=== PATIENT | female | born 1990 | race Hispanic/Latino ===

== ENCOUNTER 2019-11-16 14:18 | Day surgery (SDC) | payer OTHER ==
[2019-11-16 15:00] VITALS: BMI 29.4
[2019-11-16] MEDS ORDERED: hydrALAZINE 20 MG/ML VIAL SLOW IVP PRN (15:30)
--- NOTE | 2019-11-16 16:13 | PRG ---
DATE OF SERVICE: PRIMARY OB: Dr. Cameron Bañuelos. CHIEF COMPLAINT: Abdominal pains and back pains. HISTORY OF PRESENT ILLNESS: The patient is a 28-year-old G2, P1 female with an intrauterine at 36 weeks and 3 days, presenting to Labor and Delivery with 1 to 2 day onset of worsening pelvic and abdominal pain. She reports the pain as shooting in her legs and thighs from her back and from her abdomen. She reports that she sometimes has tightening in her belly. The pain is much worse with activity and movement such as getting out of bed, walking and lifting. She does have a 3-year-old at home that she keeps her very active. The patient denies any fever, cough, headache, chest pain, shortness of breath. She does have some nausea. Denies vomiting. Denies diarrhea or constipation. Denies any new rashes, hip problems, knee problems, muscle weakness. Denies vaginal bleeding, leakage of fluid, urinary urgency or frequency. PAST MEDICAL HISTORY: Negative. PAST SURGICAL HISTORY: Negative. ALLERGIES: NO KNOWN DRUG ALLERGIES. MEDICATIONS: vitamins. SOCIAL HISTORY: Denies drug, alcohol, tobacco use. OB LABS: Unavailable at time of dictation. REVIEW OF SYSTEMS: Per HPI. PHYSICAL EXAMINATION: VITAL SIGNS: Blood pressure is 123/74, heart rate of 64, temperature 98.3. GENERAL: She appears to be in no acute distress. She is alert and oriented, cooperative, and pleasant to interact with. HEAD: Normocephalic, atraumatic. LUNGS: Clear to auscultation bilaterally. HEART: Has regular rate and rhythm. ABDOMEN: Gravid, soft, nontender. EXTREMITIES: Nontender, nonedematous. She does have SI joint tenderness to palpation that reproduces some of the pain that she describes. CERVICAL: She is 1, 50% effaced, -3 station. heart tracing shows the fetus with a baseline and 130s with moderate long-term variability, positive 15 x 15 accelerations, no decelerations. Tocometer shows some irritability with occasional contractions. ASSESSMENT AND PLAN: The patient is a 28-year-old female with an intrauterine at 36 weeks and 3 days, experiencing musculoskeletal pains of . She has no evidence of labor at this time. She does live about 20 minutes from the hospital and has been given labor precautions. She has an appointment scheduled to see her primary provider next Wednesday, which we have encouraged that she keep. Fetus has a category 1 tracing and reactive NST. Job ID: [id number]
== END 2019-11-16 15:50 | disposition home or self-care (01) ==
LOC: L&D/OP 14:18
PROVIDERS: ATTEND Obstetrics & Gynecology
DX: O26.893 Other specified pregnancy related conditions, third trimester (principal); R10.2 Pelvic and perineal pain; R10.9 Unspecified abdominal pain; M54.9 Dorsalgia, unspecified; Z3A.36 36 weeks gestation of pregnancy

== ENCOUNTER 2020-08-12 14:51 | Observation (INO) | payer SELFPAY ==
[2020-08-12 18:10] VITALS: BMI 25.9
[2020-08-12] MEDS ORDERED: Acetaminophen 650 MG Suppository PR PRN (18:14)
[2020-08-12] MEDS ORDERED: Ondansetron ODT 4 MG TAB PO PRN (18:14)
[2020-08-12] MEDS ORDERED: Senokot S 8.6-50 MG TAB PO PRN (18:14)
[2020-08-12] MEDS ORDERED: Acetaminophen 325 MG TAB PO PRN (18:14)
[2020-08-12] MEDS ORDERED: Ondansetron PF 4 MG/2 ML Vial IVP PRN (18:14)
[2020-08-12] MEDS ORDERED: Promethazine 25 MG TAB PO PRN (19:30)
[2020-08-12] MEDS ORDERED: Lactated Ringer's 1,000 ML IV SCH (19:30)
[2020-08-12] MEDS ORDERED: hydrOXYzine 25 MG TAB PO PRN (19:30)
[2020-08-12] MEDS ORDERED: Preparation H Suppository PR PRN (19:32)
[2020-08-12] MEDS: Sucralfate 1 GM TAB PO SCH (22:06)
[2020-08-12 23:59] LABS: SARS-CoV-2 NAA Rapid Test Not Detected (NotDetected)
[2020-08-13 06:34] LABS: #Eosinphils 0.2 thou/uL (0.0-0.7); #Lymphocytes 1.4 thou/uL (1.20-3.40); #Monocytes 0.6 thou/uL (0.11-0.59); #Neutrophils 6.1 thou/uL (1.40-6.50); %Basophils 0.4 % (0.0-1.0); %Eosinophils 2.4 % (0.0-10.0); %Monocytes 6.9 % (0.0-10.0); %Neutrophils 73.3 % (42.0-75.0); Hemoglobin 11.6 g/dL (12.0-16.0); Mean Corpuscular HGB CONC 33.6 g/dL (32.0-36.0); Mean Corpuscular Hemoglobin 30.2 pg (27.0-31.0); Mean Corpuscular Volume 89.9 fL (78.0-98.0); Mean Platelet Volume 8.1 fL (7.4-10.4); Platelet Count 221 thou/uL (130-400); RBC Distribution Width 11.6 % (11.5-14.5); Red Blood Cell (RBC) Count 3.83 mill/uL (4.20-5.40); White Blood Cell (WBC) Count 8.3 thou/uL (4.8-10.8)
[2020-08-13 06:52] LABS: Phosphorus 2.9 mg/dL (2.3-4.7)
[2020-08-13 07:01] LABS: ALT (SGPT) 8 U/L (8-55); AST (SGOT) 12 U/L (5-34); Albumin 3.2 g/dL (3.5-5.0); Alkaline Phosphatase 55 U/L (40-110); Anion Gap 9 mmol/L (10-20); BUN (Urea Nitrogen) 6 mg/dL (7.0-18.7); Bilirubin, Total 1.3 mg/dL (0.2-1.2); Calc. Creatinine Clearance 128 mL/min (70-130); Carbon Dioxide 26 mmol/L (22-29); Chloride 109 mmol/L (98-107); Globulin 2.8 g/dL (2.4-3.5); Glucose 95 mg/dL (70-105); Magnesium 2.2 mg/dL (1.6-2.6); Potassium 4.1 mmol/L (3.5-5.1); Sodium 140 mmol/L (136-145)
[2020-08-13] MEDS: Sucralfate 1 GM TAB PO SCH ×3 (08:49→17:12)
[2020-08-13] MEDS: Dicyclomine 10 MG/5 ML PO SCH ×2 (13:24→17:12)
[2020-08-13 15:54] VITALS: BP 108/72; TEMP 98.3
== END 2020-08-13 17:20 | disposition home or self-care (01) ==
LOC: INTOOBSV 14:51 → T4-A 14:51
PROVIDERS: ADMIT Family Medicine; ATTEND Family Medicine
DX: R10.9 Unspecified abdominal pain (principal); R11.2 Nausea with vomiting, unspecified; R19.7 Diarrhea, unspecified; K21.9 Gastro-esophageal reflux disease without esophagitis; F10.10 Alcohol abuse, uncomplicated; M79.604 Pain in right leg; M79.605 Pain in left leg; K64.9 Unspecified hemorrhoids; N20.0 Calculus of kidney; N80.9 Endometriosis, unspecified; Z87.891 Personal history of nicotine dependence; Z88.8 Allergy status to other drugs, medicaments and biological substances; Z20.822 Contact with and (suspected) exposure to COVID-19
CPT/HCPCS: 0240U; 36415; 80053; 83735; 84100; 85025; G0378

== ENCOUNTER 2022-05-19 13:52 | Outpatient (CLI) | payer OTHER | END 2022-05-19 13:53 | disposition home or self-care (01) | LOC: BICMAMMO 13:52 | PROVIDERS: ATTEND Family Medicine | DX: N64.4 Mastodynia (principal) | CPT/HCPCS: 77066; G0279 ==